=== PATIENT | male | born 1985 | race African-American/Black ===

== ENCOUNTER 2017-10-08 09:00 | Day surgery (SDC) | payer OTHER ==
[2017-10-03 10:45] LABS: Absolute Lymphocytes (CBC) 2.1 K/uL (0.7-4.9); Absolute Monocytes 0.5 K/uL (0.1-1.3); Absolute Neutrophil 1.5 K/uL (1.8-8.0); Basophils % 0.6 % (0-1.3); Eosinophils % 0.7 % (0-4.4); Hematocrit 39.1 % (39.6-49.0); MCH 27.9 pg (27.0-35.0); MCV 81.2 fL (80-100); MPV 8.5 fL (7.6-11.3); Monocytes % 11.7 % (3.3-12.3); RBC Red Blood Cell Count 4.81 M/uL (4.33-5.43)
[2017-10-03 11:06] LABS: BUN Blood Urea Nitrogen 13 mg/dL (7-18); Bicarbonate 28 mmol/L (21-32); Glucose Level 77 mg/dL (74-106); Potassium 3.9 mmol/L (3.5-5.1); Sodium Level 137 mmol/L (136-145)
[2017-10-03 11:51] LABS: Albumin 4.3 g/dL (3.4-5.0); Bilirubin Direct 0.1 mg/dL (0-0.2); Bilirubin Total 0.6 mg/dL (0.2-1.0); Protein, Total 8.4 g/dL (6.4-8.2)
--- NOTE | 2017-10-03 17:14 | EKG ---
Test Date: 2017-10-03 Test Time: 09:17:58 Pig Machine Crane Operator: SHAYLA MEASUREMENT RESULTS: Intervals: Rate: 67 ID: [id number] QRSD: 90 QT: 378 QTc: 399 [place]: P: 30 ID: [id number] QRS: 37 T: 20 INTERPRETIVE STATEMENTS: Normal sinus rhythm with sinus arrhythmia Nonspecific T wave abnormality Abnormal ECG No previous ECG available for comparison Electronically Signed On 10-03-17 17:11:12 CDT by Miles Jama
[2017-10-08] MEDS ORDERED: Ringers Lactate 1,000 ML IV ONE ×2 (09:22→11:06)
[2017-10-08] MEDS ORDERED: CEFOXITIN/SWI 1gm 1 GM/10 ML SYR ONE (09:23)
[2017-10-08] MEDS ORDERED: ONDANSETRON HCL 40 MG/20 ML VIAL ONE (10:19)
[2017-10-08] MEDS ORDERED: MIDAZOLAM HCL 2 MG/2 ML INJ ONE (10:19)
[2017-10-08] MEDS ORDERED: FENTANYL CITR 250 MCG/5 ML ONE (10:19)
[2017-10-08] MEDS ORDERED: ROCURONIUM 50 MG/5 ML VIAL IV ONE (10:19)
[2017-10-08] MEDS ORDERED: PROPOFOL 200 MG/20 ML VIAL IV ONE (10:19)
[2017-10-08] MEDS ORDERED: LIDOCAINE 1% MPF 2 ML AMPULE ONE (10:20)
[2017-10-08] MEDS ORDERED: KETOROLAC 30 MG/ML INJ ONE (11:26)
[2017-10-08] MEDS ORDERED: GLYCOPYRROLATE 0.2 MG/ML SYR ONE (11:30)
[2017-10-08] MEDS ORDERED: NEOSTIGMINE 1 MG/ML -5 ML SYRINGE ONE (11:30)
[2017-10-08] MEDS ORDERED: ONDANSETRON 4 MG/2 ML VIAL ONE (12:06)
[2017-10-08] MEDS ORDERED: MEPERIDINE HCL 25 MG/0.5 ML ONE (12:29)
[2017-10-08] MEDS ORDERED: METOCLOPRAMIDE 10 MG/2mL INJ ONE (12:34)
[2017-10-08] MEDS ORDERED: HYDROCODONE/APAP 7.5/325 MG TAB ONE (13:48)
--- NOTE | 2017-10-08 22:48 | OP ---
Date of Procedure: 10/08/2017 Surgeon: Isidro Rodriguez MD Preoperative Diagnosis: Symptomatic cholelithiasis. Postoperative Diagnosis: Symptomatic cholelithiasis with extensive adhesions and chronic cholecystit is. Procedures Performed: Laparoscopic cholecystectomy and lysis of adhesions. Estimated Blood Loss: Minimal. Specimen: Gallbladder. Finding: As above. Anesthesia: General. Complications: None. Disposition: The patient tolerated the procedure in stable condition and taken to recovery in good g eneral condition. Procedure In Detail: The patient was brought to the OR and placed in supine position. General anest hesia begun. The patient was prepped and draped in the usual sterile fashion. Marcaine 0.5% was inf iltrated locally. A 15-blade was used to make a 1-cm incision supraumbilically midline. Subcutaneou s tissue was divided. The fascia was identified and divided. A #1 Vicryl stay suture was placed. P eritoneal cavity was entered with blunt dissection. A 12-mm trocar was placed into the peritoneal ca vity under direct vision. Pneumoperitoneum was established. Then, three 5-mm trocars were placed, 1 in the epigastrium just to the right of midline and 2 in the right subcostal region. Then, approxim ately 10 minutes were required to take down adhesions from the gallbladder as there were omental adhe sions attached to it and this was done with sharp and blunt dissection. Bleeding was controlled with cautery. Then, fundus was retracted superiorly. Infundibulum was identified and retracted inferola terally. Cystic duct and cystic artery were clearly identified with blunt dissection. Clips were pl aced. Both structures were divided. Cautery was used to remove the gallbladder from the liver bed. Bleeding on the liver bed was controlled with cautery. The gallbladder was retrieved through the um bilicus via an EndoCatch bag. Right upper quadrant was irrigated. Effluent was clear. No evidence of bleeding or bile leakage was appreciated. Subsequently, all trocars were removed under direct vis ion. Stay sutures were tied to each other across the fascial defect. Subcutaneous wounds were irrig ated. Bleeding was controlled with cautery. A 3-0 chromic was used to reapproximate subcutaneous ti ssue. [place] were used to close the skin. Sterile dressing was applied. The patient was awakened and taken to recovery in good general condition. Discharge Note: The patient will go to day surgery and home when stable. Disposition: Home. Condition: Stable. Discharge Instructions: Resume home meds and diet. Activity as tolerated. No heavy lifting. Remov e outer dressing in 2 days. Shower. Keep wound clean and dry. Follow up office in my office in [address] [place]. Call for appointment. Tylenol No. 3 one tablet p.o. q.4 p.r.n. pain. /MYRNA Voice ID: [id number] Report ID: [id number]
== END 2017-10-08 14:27 | disposition home or self-care (01) ==
LOC: OR 09:00
PROVIDERS: ATTEND Surgery
PROC: 0FT44ZZ Resection of Gallbladder, Percutaneous Endoscopic Approach (ICD-10-PCS; principal; 2017-10-08 10:00)
DX: K80.20 Calculus of gallbladder without cholecystitis without obstruction (principal); K66.0 Peritoneal adhesions (postprocedural) (postinfection); I10 Essential (primary) hypertension; E66.9 Obesity, unspecified; Z68.39 Body mass index [BMI] 39.0-39.9, adult
CPT/HCPCS: 36415; 80048; 80076; 82150; 85025; 88304; 93005; J2001; J2175; J2250; J2405; J2710; J2765

== ENCOUNTER 2019-09-21 13:06 | Emergency (ER) | payer OTHER ==
--- OUTSIDE RECORDS SUMMARY | 2019-09-21 13:15 | XMS REPORT | Continuity of Care Document ---
:1985 Author Organization [facility] t Address [address] [place] [address] [address] [place] [address] Care Team Providers Name Role Phone Unavailable Unavailable Unavailable Problems This patient has no known problems. Allergies, Adverse Reactions, Alerts This patient has no known allergies or adverse reactions. Medications This patient has no known medications. Procedures This patient has no known procedures. Results This patient has no known results.
[2019-09-21 14:27] LABS: Absolute Lymphocytes (CBC) 2.4 K/uL (0.7-4.9); Hematocrit 41.7 % (39.6-49.0); Lymphocytes % 39.7 % (15.3-44.8); MPV 7.9 fL (7.6-11.3); Protime INR 1.11; RBC Red Blood Cell Count 5.19 M/uL (4.33-5.43)
--- NOTE | 2019-09-21 14:49 | RAD REPORT ---
EXAM DESCRIPTION: CT - Head C Spine Mpr Wo Con - 09/21/2019 2:14 pm CLINICAL HISTORY: Dizziness and radiculopathy COMPARISON: None. TECHNIQUE: Computed axial tomography of the head and cervical spine was obtained. Sagittal and coronal reconstruction was performed. All CT scans are performed using dose optimization technique as appropriate and may include automated exposure control or mA/KV adjustment according to patient size. FINDINGS: An intracranial bleed is not seen. The ventricles are normal in caliber. An extra-axial fl uid collection is not noted.Fluid within the visualized sinuses and mastoids is not seen A cervical fracture is not visualized. No dislocation is noted. High-grade central/foraminal stenosis not seen IMPRESSION: No acute intracranial abnormality is seen. A cervical fracture is not visualized. No high-grade central/foraminal stenosis noted If the patient continues to have symptoms to suggest intracranial /spinal cord/spinal canal pathology then MRI would be recommended
--- NOTE | 2019-09-21 14:53 | RAD REPORT ---
EXAM DESCRIPTION: Tati Single View09/21/2019 2:18 pm CLINICAL HISTORY: Chest pain COMPARISON: 2017 FINDINGS: The lungs appear clear of acute infiltrate. The heart is normal size IMPRESSION: No acute abnormalities displayed
[2019-09-21 14:58] LABS: ALT/SGPT 69 U/L (12-78); Albumin 4.5 g/dL (3.4-5.0); Alkaline Phosphatase 84 U/L (45-117); BUN Blood Urea Nitrogen 11 mg/dL (7-18); Bicarbonate 30 mmol/L (21-32); Bilirubin Direct < 0.1 mg/dL (0-0.2); Bilirubin Total 0.5 mg/dL (0.2-1.0); Glucose Level 95 mg/dL (74-106); NT PRO-BNP 17 pg/mL (<125); Protein, Total 9.3 g/dL (6.4-8.2); Sodium Level 136 mmol/L (136-145); Troponin (Emerg Dept Use Only) < 0.02 ng/mL (0.0-0.045)
[2019-09-21 15:02] LABS: AST/SGOT 29 U/L (15-37); Magnesium 2.6 mg/dL (1.8-2.4); Potassium 3.2 mmol/L (3.5-5.1)
[2019-09-21] MEDS ORDERED: POTASSIUM 25 MEQ EFFERV TAB ONE (15:21)
--- NOTE | 2019-09-21 15:30 | EDPHYS ---
Physician Documentation [facility] Name: Chiki Felix Age: 33 yrs Sex: Male : 1985 Arrival Date: 09/21/2019 Time: 13:08 Bed 19 Private MD: ED Physician Jd Arndt HPI: 09/20 14:09 This 33 yrs old Black Male presents to ER via Ambulatory with complaints of L Arm Pain. snw 14:09 Onset: The symptoms/episode began/occurred suddenly, today, and became persistent. snw Associated signs and symptoms: The patient has no apparent associated signs or symptoms. The patient has not experienced similar symptoms in the past. The patient has not recently seen a physician. family hx of heart disease, diabetes. Historical: - Allergies: 13:22 No Known Allergies; aa5 - Home Meds: 13:22 losartan oral oral [Active]; aa5 - PMHx: 13:22 Hypertension; aa5 - PSHx: 13:22 Cholecystectomy; aa5 - Immunization history:: Adult Immunizations up to date. - Social history:: Smoking status: Patient denies any tobacco usage or history of. ROS: 14:06 Constitutional: Negative for fever, chills, and weight loss, Eyes: Negative for injury, snw pain, redness, and discharge, ENT: Negative for injury, pain, and discharge, Neck: Negative for injury, pain, and swelling, Cardiovascular: Negative for chest pain, palpitations, and edema, Respiratory: Negative for shortness of breath, cough, wheezing, and pleuritic chest pain, Abdomen/GI: Negative for abdominal pain, nausea, vomiting, diarrhea, and constipation, Back: Negative for injury and pain, : Negative for injury, bleeding, discharge, and swelling, MS/Extremity: Negative for injury and deformity, Skin: Negative for injury, rash, and discoloration. 14:06 Neuro: Positive for dizziness, paresthesias. Exam: 14:04 Constitutional: This is a well developed, well nourished patient who is awake, alert, snw and in no acute distress. Head/Face: Normocephalic, atraumatic. Eyes: Pupils equal round and reactive to light, extra-ocular motions intact. Lids and lashes normal. Conjunctiva and sclera are non-icteric and not injected. Cornea within normal limits. Periorbital areas with no swelling, redness, or edema. ENT: Nares patent. No nasal discharge, no septal abnormalities noted. Tympanic membranes are normal and external auditory canals are clear. Oropharynx with no redness, swelling, or masses, exudates, or evidence of obstruction, uvula midline. Mucous membranes moist. Neck: Trachea midline, no thyromegaly or masses palpated, and no cervical lymphadenopathy. Supple, full range of motion without nuchal rigidity, or vertebral point tenderness. No Meningismus. Chest/axilla: Normal chest wall appearance and motion. Nontender with no deformity. No lesions are appreciated. Cardiovascular: Regular rate and rhythm with a normal S1 and S2. No gallops, murmurs, or rubs. Normal PMI, no JVD. No pulse deficits. Respiratory: Lungs have equal breath sounds bilaterally, clear to auscultation and percussion. No rales, rhonchi or wheezes noted. No increased work of breathing, no retractions or nasal flaring. Abdomen/GI: Soft, non-tender, with normal bowel sounds. No distension or tympany. No guarding or rebound. No evidence of tenderness throughout. Back: No spinal tenderness. No costovertebral tenderness. Full range of motion. Skin: Warm, dry with normal turgor. Normal color with no rashes, no lesions, and no evidence of cellulitis. Psych: Awake, alert, with orientation to person, place and time. Behavior, mood, and affect are within normal limits. 14:04 Neuro: blurry vision. 14:04 Neuro: shocking pain from left elbow down intermittently. Vital Signs: 13:22 BP 138 / 85; Pulse 98; Resp 20 S; Temp 99.0(O); Pulse Ox 98% on R/A; Weight 112.04 kg aa5 (R); Height 5 ft. 9 in. (175.26 cm) (R); Pain 0/10; 15:00 BP 141 / 84; Pulse 88; Resp 17; Pulse Ox 99% on R/A; tw2 16:20 BP 130 / 79; Pulse 87; Resp 17; Pulse Ox 99% on R/A; tw2 13:22 Body Mass Index 36.48 (112.04 kg, 175.26 cm) aa5 MDM: 13:27 Patient medically screened. snw 15:31 Data reviewed: vital signs, nurses notes. Data interpreted: Pulse oximetry: on room air snw is 99 %. Interpretation: normal. Counseling: I had a detailed discussion with the patient and/or guardian regarding: the historical points, exam findings, and any diagnostic results supporting the discharge/admit diagnosis, lab results, radiology results, the need for outpatient follow up, to return to the emergency department if symptoms worsen or persist or if there are any questions or concerns that arise at home. Special discussion: I have referred the patient to see his PCP for further evaluation of high blood pressure. Based on the history and exam findings, there is no indication for further emergent testing or inpatient evaluation. I discussed with the patient/guardian the need to see the primary care provider for further evaluation of the symptoms. 09/20 13:45 Order name: Basic Metabolic Panel snw 09/20 13:45 Order name: CBC with Diff; Complete Time: 15:02 snw 09/20 13:45 Order name: LFT's; Complete Time: 15:03 snw 09/20 13:45 Order name: Magnesium; Complete Time: 15:03 snw 09/20 13:45 Order name: NT PRO-BNP; Complete Time: 15:03 snw 09/20 13:45 Order name: PT-INR; Complete Time: 15:02 snw 09/20 13:45 Order name: Troponin (emerg Dept Use Only); Complete Time: 15:03 snw 09/20 13:45 Order name: XRAY Chest (1 view); Complete Time: 14:54 snw 09/20 13:45 Order name: EKG; Complete Time: 13:46 snw 09/20 13:45 Order name: CT Head C Spine; Complete Time: 14:51 snw 09/20 13:45 Order name: Basic Metabolic Panel; Complete Time: 15:03 EDMS 09/20 13:45 Order name: Cardiac monitoring; Complete Time: 13:48 snw 09/20 13:45 Order name: EKG - Nurse/Tech; Complete Time: 15:01 snw 09/20 13:45 Order name: IV Saline Lock; Complete Time: 15:01 snw 09/20 13:45 Order name: Labs collected and sent; Complete Time: 15:01 snw 09/20 13:45 Order name: O2 Per Protocol; Complete Time: 13:47 snw 09/20 13:45 Order name: O2 Sat Monitoring; Complete Time: 13:47 snw Administered Medications: 15:20 Drug: Potassium Effervescent Tablet 50 mEq Route: PO; tw2 15:35 Follow up: Response: No adverse reaction tw2 15:50 Drug: Gabapentin 300 mg Route: PO; tw2 16:19 Follow up: Response: No adverse reaction tw2 15:50 Drug: Decadron - Dexamethasone 10 mg Route: IVP; Site: right wrist; tw2 16:19 Follow up: Response: No adverse reaction tw2 Disposition: 09/21 06:36 Co-signature as Attending Physician, Jd Arndt MD I agree with the assessment and justina plan of care. Disposition: 09/21/19 15:30 Discharged to Home. Impression: Radiculopathy, cervicothoracic region, Hypokalemia. - Condition is Stable. - Discharge Instructions: Cervical Radiculopathy, Potassium Content of Foods, Neuropathic Pain, Aspirin and Your Heart, Hypokalemia. - Prescriptions for gabapentin 300 mg Oral capsule - take 1 capsule by ORAL route 2 times per day; 40 capsule. - Medication Reconciliation Form, Thank You Letter, Antibiotic Education, Prescription Opioid Use, Work release form form. - Follow up: Emergency Department; When: As needed; Reason: Worsening of condition. Follow up: Private Physician; When: 2 - 3 days; Reason: Recheck today's complaints, Continuance of care, Re-evaluation by your physician. - Notes: Please take one baby aspirin daily Signatures: Dispatcher [employer] EDKY Jd Arndt MD MD cha Waters, Shelly, COPIER TECHNICIAN-C COPIER TECHNICIAN-Csnw Natalie Quinteros, RN RN aa5 Tracie Wilkes, RN RN tw2 Corrections: (The following items were deleted from the chart) 09/20 16:21 15:30 09/21/2019 15:30 Discharged to Home. Impression: Radiculopathy, cervicothoracic tw2 region; Hypokalemia. Condition is Stable. Forms are Work release form, Medication Reconciliation Form, Thank You Letter, Antibiotic Education, Prescription Opioid Use. Follow up: Emergency Department; When: As needed; Reason: Worsening of condition. Follow up: Private Physician; When: 2 - 3 days; Reason: Recheck today's complaints, Continuance of care, Re-evaluation by your physician. snw
--- NOTE | 2019-09-21 15:30 | ER ---
Nurse's Notes [facility] Name: Chiki Felix Age: 33 yrs Sex: Male : 1985 Arrival Date: 09/21/2019 Time: 13:08 Bed 19 Private MD: Diagnosis: Radiculopathy, cervicothoracic region;Hypokalemia Presentation: 09/20 13:22 Method Of Arrival: Ambulatory aa5 13:22 Chief complaint: Patient states: left arm intermittent pain that began today. Pt states aa5 "I also feel woozy and lightheaded". Denies SOB, denies cough, denies fever. Coronavirus screen: Client denies travel out of the [place] in the last 14 days. At this time, the client does not indicate any symptoms associated with coronavirus-19. Ebola Screen: Patient negative for fever greater than or equal to 101.5 degrees Fahrenheit, and additional compatible Ebola Virus Disease symptoms. Initial Sepsis Screen: Does the patient meet any 2 criteria? No. Patient's initial sepsis screen is negative. Does the patient have a suspected source of infection? No. Patient's initial sepsis screen is negative. Risk Assessment: Do you want to hurt yourself or someone else? Patient reports no desire to harm self or others. Onset of symptoms was September 21, 2019. 13:22 Acuity: DARIEN 3 aa5 Triage Assessment: 13:22 General: Appears in no apparent distress. Behavior is calm, cooperative, appropriate tw2 for age. Pain: Complains of pain in left arm. Neuro: Reports "woozy". Historical: - Allergies: 13:22 No Known Allergies; aa5 - Home Meds: 13:22 losartan oral oral [Active]; aa5 - PMHx: 13:22 Hypertension; aa5 - PSHx: 13:22 Cholecystectomy; aa5 - Immunization history:: Adult Immunizations up to date. - Social history:: Smoking status: Patient denies any tobacco usage or history of. Screenin:15 Abuse screen: Denies threats or abuse. Nutritional screening: No deficits noted. tw2 Tuberculosis screening: No symptoms or risk factors identified. Fall Risk None identified. Assessment: 13:25 General: Appears in no apparent distress. well groomed, Behavior is calm, cooperative, tw2 appropriate for age. Pain: Complains of pain in left arm. Neuro: Level of Consciousness is awake, alert, obeys commands, Oriented to person, place, time, situation. Cardiovascular: Heart tones S1 S2 Patient's skin is warm and dry. Respiratory: Airway is patent Respiratory effort is even, unlabored, Respiratory pattern is regular, symmetrical, Breath sounds are clear bilaterally. GI: No signs and/or symptoms were reported involving the gastrointestinal system. Abdomen is distended, non-distended, Bowel sounds present X 4 quads. : No signs and/or symptoms were reported regarding the genitourinary system. EENT: No signs and/or symptoms were reported regarding the EENT system. Derm: No signs and/or symptoms reported regarding the dermatologic system. Musculoskeletal: Circulation, motion, and sensation intact. 15:00 Reassessment: Patient appears in no apparent distress at this time. No changes from tw2 previously documented assessment. Patient and/or family updated on plan of care and expected duration. Pain level reassessed. Patient is alert, oriented x 3, equal unlabored respirations, skin warm/dry/pink. 16:20 Reassessment: Patient appears in no apparent distress at this time. No changes from tw2 previously documented assessment. Patient and/or family updated on plan of care and expected duration. Pain level reassessed. Patient is alert, oriented x 3, equal unlabored respirations, skin warm/dry/pink. Vital Signs: 13:22 BP 138 / 85; Pulse 98; Resp 20 S; Temp 99.0(O); Pulse Ox 98% on R/A; Weight 112.04 kg aa5 (R); Height 5 ft. 9 in. (175.26 cm) (R); Pain 0/10; 15:00 BP 141 / 84; Pulse 88; Resp 17; Pulse Ox 99% on R/A; tw2 16:20 BP 130 / 79; Pulse 87; Resp 17; Pulse Ox 99% on R/A; tw2 13:22 Body Mass Index 36.48 (112.04 kg, 175.26 cm) aa5 ED Course: 13:08 Patient arrived in ED. ds1 13:22 Arm band placed on. aa5 13:22 Bed in low position. Call light in reach. monitor and storage bin tender on. Pulse ox on. NIBP on. tw2 13:25 Jess Villafana FNP-C is PHCP. snw 13:25 Jd Arndt MD is Attending Physician. snw 13:29 Tracie Wilkes, RN is Primary Nurse. tw2 13:39 Triage completed. aa5 14:11 Inserted saline lock: 22 gauge in right wrist, using aseptic technique. Blood collected.dh4 14:14 CT Head C Spine In Process Unspecified. EDMS 14:18 XRAY Chest (1 view) In Process Unspecified. EDMS 16:20 No provider procedures requiring assistance completed. IV discontinued, intact, tw2 bleeding controlled, No redness/swelling at site. Pressure dressing applied. Administered Medications: 15:20 Drug: Potassium Effervescent Tablet 50 mEq Route: PO; tw2 15:35 Follow up: Response: No adverse reaction tw2 15:50 Drug: Gabapentin 300 mg Route: PO; tw2 16:19 Follow up: Response: No adverse reaction tw2 15:50 Drug: Decadron - Dexamethasone 10 mg Route: IVP; Site: right wrist; tw2 16:19 Follow up: Response: No adverse reaction tw2 Outcome: 15:30 Discharge ordered by . snw 16:20 Discharged to home ambulatory. tw2 16:20 Condition: stable 16:20 Discharge instructions given to patient, Instructed on discharge instructions, follow up and referral plans. medication usage, Demonstrated understanding of instructions, follow-up care, medications, Prescriptions given X 1. 16:21 Patient left the ED. tw2 Signatures: Dispatcher [employer] EDKY Jess Villafana FNP-C DEMO EVENT SPECIALIST-Csnw Marcelina Reyes ds1 Natalie Quinteros RN RN aa5 Tracie Wilkes, XENIA RN tw2 Jason Alcaraz [facility]
[2019-09-21] MEDS ORDERED: dexAMETHasone 10 MG/ML VIAL ONE (15:50)
[2019-09-21] MEDS ORDERED: GABAPENTIN 300 MG CAP ONE (15:50)
[2019-09-21 16:35] VITALS: TEMP 99
[2019-09-21 16:37] VITALS: O2SAT 99
[2019-09-21 16:38] VITALS: BP 130/79
--- NOTE | 2019-09-22 07:16 | EKG ---
Test Date: 2019-09-21 Test Time: 13:33:56 Chief Information Security Officer: ARISTEO MEASUREMENT RESULTS: Intervals: Rate: 100 NC: 164 QRSD: 88 QT: 322 QTc: 415 [place]: P: 58 NC: 164 QRS: 65 T: -17 INTERPRETIVE STATEMENTS: Normal sinus rhythm T wave abnormality, consider inferior ischemia Abnormal ECG Compared to ECG 10/03/2017 09:17:58 Possible ischemia now present Sinus arrhythmia no longer present T-wave abnormality still present Electronically Signed On 09-22-19 07:15:48 CDT by Miles Jama
== END 2019-09-21 16:21 | disposition home or self-care (01) ==
LOC: ER 13:06
DX: M54.13 Radiculopathy, cervicothoracic region (principal); E87.6 Hypokalemia; I10 Essential (primary) hypertension; Z83.3 Family history of diabetes mellitus; Z82.49 Family history of ischemic heart disease and other diseases of the circulatory system
CPT/HCPCS: 85025; 80048; 36415; 83735; 85610; 80076; 84484; 83880; 70450; 72125; 71045; J1100; 93005; 96374; 99284